=== PATIENT | male | born 1970 | race Native Hawaiian/Other Pacific Islander ===

== ENCOUNTER 2016-12-08 06:10 | Inpatient (IN) | payer MEDICARE ==
[~2016-12-08] VITALS: Ht 175.3 cm; Wt 111.4 kg
[2016-12-08] VITALS (13 sets, daily range): BP systolic 126–173; BP diastolic 65–89; PULSE 62–84; RESP 18–35; O2SAT 93–100
--- NOTE | 2016-12-08 06:15 | ED.REPORT ---
HPI-Chest Pain 40 and Over Date of Service December 08, 2016 ED Provider: Delilah Castro MD The patient is a 46 year old male w/ a hx of kidney failure on dialysis, DM and HTN who presents to the ED via EMS due to sudden onset 8/10 mid-chest pain beginning this morning at 415. C/o associated SOB. 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 Medics found him hypertensive and he was given nitro and morphine en route. The pt lives in [facility] and was referred to [facility] for more extensive cardiac care that could not be provided in [facility]. [place]. The pt lives in [facility] and he had an episode of chest pain about a month ago, at which time he was hospitalized. Further evaluation found 2 known lesions. His last dialysis was . The pt's SATS are 77 on room air. He reports his pain at the ED is zero. Nursing Notes Stated Complaint: CHEST PAIN Nursing Notes Reviewed: Yes Allergies: Coded Allergies: No Known Allergies (Unverified , 12/08/16) Scheduled Aspirin (Aspirin) 81 Mg Tablet 81 MG PO DAILY Calcium Acetate (Calcium Acetate) 667 Mg Capsule 2,001 MG PO TID Carvedilol (Coreg) 6.25 Mg Tablet 6.25 MG PO BID Clonidine (Clonidine) 0.2 Mg Tablet 0.2 MG PO HS Clopidogrel Bisulfate (Plavix) 75 Mg Tablet 75 MG PO DAILY Insulin Glargine (Lantus U100 Insulin Vial) 100 Unit/Ml Vial 40 UNIT SUBQ BID Losartan Potassium (Losartan Potassium) 50 Mg Tablet 50 MG PO DAILY General Time Seen by MD: 06:13 Chief Complaint Chest pain Hx Obtained From: Patient, EMS Arrived By: Ambulance Sudden in Onset?: Yes Onset Occurred: 1 - 4 hours ago Symptom Duration: Since onset Location: : Chest left Quality: Painful Radiation: : Does not radiate Severity: Current: Pain level 0 out of 10 Severity: Maximum: Pain level 8 out of 10 Associated with: Reports: Shortness of Breath Recent Healthcare: Recent doctor visit, Recent hospitalization Similar Sx Previous: Yes Past Medical History Past Medical History kidney failure on dialysis Reports: Diabetes mellitus, Hypertension Family History Pt just arrived from [facility] on 12/05/16 where he could not receive adequate medical care. He was referred to a energy auditor in [place]. Smoking History Unknown if Ever Smoker Social History Other Social History: Good social support, From out of town Ambulatory Status Independent Review of Systems Respiratory: Reports: Shortness of breath Cardiovascular: Reports: Chest pain Complete sys rev & neg: except as marked. Physical Exam Initial Vital Signs Vital Signs (First) Date Time Temp Pulse Resp B/P Pulse Ox O2 Delivery O2 Flow Rate FiO2 12/08/16 06:18 36.8 84 35 172/89 99 Non-Rebreather 10 Initial VS: Reviewed Head / Eyes: Atraumatic, Normocephalic, PERRL ENT: Mucous membranes moist Back: No CVA tenderness Extremities: Vascular intact, Neuro intact, No swelling, No tenderness Skin: Warm, Dry General/Constitutional: Awake, Alert, Cooperative Appearance / Presentation: Positive: Pale hypoxic well profused oriented Respiratory / Chest: Atraumatic, Breath sounds NL, Breath sounds = bilat, No rales, No rhonchi, No wheezing Cardiovascular: Heart rate NL, Regular rhythm, Heart sounds NL Lower Ext Edema: Positive: Bilateral 2+ chronic venous stasis changes Abdomen: Atraumatic, Soft, Non-tender Interpretation & Diagnostics Lab Results Interpretation Result Diagram: 12/08/16 0631 12/08/16 0631 Test 12/08/16 06:31 White Blood Count 11.6th/mm3 (3.8-10.1) Red Blood Count 3.40mil/mm3 (4.40-5.80) Hemoglobin 10.8g/dL (13.8-17.2) Hematocrit 32.9% (41.0-50.0) Mean Corpuscular Volume 96.8fL (81-100) Mean Corpuscular Hemoglobin 31.8pg (27.0-35.0) Mean Corpuscular Hemoglobin Concent 32.8% (32.0-37.0) Red Cell Distribution Width 12.8% (12.3-15.4) Platelet Count 268bil/L (150-400) Neutrophils (%) (Auto) 73.0% (40-74) Lymphocytes (%) (Auto) 15.2% (14-46) Monocytes (%) (Auto) 5.9% (4-12) Eosinophils (%) (Auto) 5.3% (0-5) Basophils (%) (Auto) 0.3% (0-3) Sodium Level 134mEq/L (134-144) Potassium Level 6.4mEq/L (3.5-5.2) Chloride Level 91mEq/L (97-108) Carbon Dioxide Level 21mmol/L (18-29) Blood Urea Nitrogen 92mg/dL (6-24) Creatinine 12.37mg/dL (0.76-1.27) Estimat Glomerular Filtration Rate 5mL/min (>59) Glucose Level 262mg/dL (60-99) Calcium Level 9.1mg/dL (8.5-10.1) Magnesium Level 3.0mg/dL (1.6-2.6) Total Bilirubin 0.3mg/dL (0.0-1.2) Aspartate Amino Transf (AST/SGOT) 26U/L (0-50) Alanine Aminotransferase (ALT/SGPT) 19U/L (0-44) Alkaline Phosphatase 95U/L (25-150) Troponin T 0.250ug/L (0.0-0.011) Total Protein 8.2g/dL (6.4-8.4) Albumin 3.9g/dL (3.4-5.0) Hold Arizmendi Top Tube Received (Received) ECG Interpretation ECG Interpretation: peaked t waves concern for potassium levels Acute ST depression in II, IV, AVF Time: 06:20 Interpreted by: ED physician Normal ECG Interpretation: Normal sinus rhythm (rate 82) ECG Interpretation: pain free improved ST depression and T-wave changes inferiorly Time: 07:18 Interpreted by: ED physician Normal ECG Interpretation: Normal sinus rhythm (rate 69) X-Ray Chest Interpretation Chest Xray Interpretation: IMPRESSION: fluid overload may be developing right lower lobe pneumonia View: Portable Interpretation / Wet Read by: Wet read ED physician Re-Eval/Medical Decision Med Decision/Clinical Course 46-year-old gentleman moved from [facility] to [facility] area on Thursday. Complex medical history with renal failure and dialysis, last dialysis was on . Diabetes hypertension hyperlipidemia." [facility] [place] he had a non-STEMI. Underwent cardiac catheterization with lesions noted in the right coronary artery and circumflex artery but they were unable to do any type of interventions. He has been on Plavix Coreg statin and aspirin since that time. Today with severe left-sided chest pain with hypoxic with saturations in the 70s. EKG does not suggest STEMI however he does have ST depression in the inferior lateral position consistent with known coronary lesions. Was pain-free after 3 nitroglycerin however within half an hour of the nitroglycerin being given his pain returned. Nitro drip was started and again pain-free. He started on heparin. He has remained hemodynamically stable throughout his emergency room visit and after the nitro drip has been started has remained pain-free. He does have hyperkalemia however he does not have a widening QRS. He was given 5 units of insulin with a blood sugar in the 200 range. Will need to be rechecked in an hour. Given his complete renal failure, expected that 5 units of insulin will not be cleared rapidly. He was significantly hypoxic responds nicely to oxygen. Chest x-ray suggests significant fluid or fluid overload. There is no clinical suggestion that there is any infectious etiology and antibiotics are not initiated in the emergency department Nephrology has been consulted, cardiology has been consulted. Patient will be admitted to the ICU with nitroglycerin and heparin drips in place. Anticipate need for dialysis. Anticipate need for coronary artery intervention at some point. Hospital records and studies from [facility] including the recent cardiac catheterization are reviewed. Anticipated course of hospital stay is reviewed with patient and family. All questions are answered. He is stable at time of transfer to the ICU. Time of Eval: 08:00 Patient Status: Moderate relief, Pain improved Re-Evaluation/Progress Note: Pt rechecked. Pt is pain free and denies SOB. He is on 5L and SATS at 97%. Discussed x-ray and plan for admission with pt and family. Pt understands and agrees with plan. All questions addressed. Consultation #1: Referral / Consult Name: Ben Sena MD Call Returned at: 06:26 Can Dryer: Agrees with eval, Agrees with plan Note: Case discussed. Consultation #2: Referral / Consult Name: Donita Wolfe MD Consulted With: Hospitalist Call Returned at: 07:35 Can Dryer: Agrees with plan Note: Case discussed. Dr. Miller agrees with evaluation. Consultation #3: Referral / Consult Name: Ben Sena MD Consulted With: Hospitalist Call Returned at: 08:20 Note: Case discussed. Dr. Sena visited pt in the ED. Consultation #4: Referral / Consult Name: Jeff Almonte MD Consulted With: Hospitalist Call Returned at: 08:30 Can Dryer: Agrees with eval, Agrees with plan Note: Case discussed. Counseled Regarding: Diagnosis, Lab results, Need for admission Discharge & Departure Primary Impression: Non-STEMI (non-ST elevated myocardial infarction) Additional Impressions: Hypoxia Chronic renal failure Chronic kidney disease stage: unspecified stage Qualified Code: N18.9 - Chronic kidney disease, unspecified Hyperkalemia Disposition: ADMITTED TO HOSPITAL Discharge Condition All VS Reviewed: Yes Condition: Stable Referrals: [facility] Crit Care Except Billable Proc Time Spent: 30-74 minutes Services Performed: Patient management by me, Time spent at bedside, Reviewing test results, Reviewing imaging, Discussing patient care, Documentation in record, Time with fam/surrogate Scribe Attestation Portion of this note were transcribed by Holly Love. I, Dr. Annmarie Castro, personally performed the history, physical exam, and medical decision-making: I reviewed and confirmed the accuracy for the information in the transcribed note. Signed by: evi Malik, 12/08/16 0800 copies to: [facility] Delilah Castro MD December 08, 2016 06:15 Holly Love December 08, 2016 06:24
[2016-12-08] MEDS ORDERED: Nitroglycerin 50 mg/250 mL D5W 50,000 MCG in IV Premix 1 EACH IV ONE (06:25)
[2016-12-08 06:49] LABS: BASOPHILS % (AUTO) 0.3 % (0-3); EOSINOPHILS % (AUTO) 5.3 % (0-5); MONOCYTES % (AUTO) 5.9 % (4-12); Mean Corpuscular Hemoglobin 31.8 pg (27.0-35.0); Mean Corpuscular Volume 96.8 fL (81-100); Platelet Count 268 bil/L (150-400)
[2016-12-08] MEDS ORDERED: Heparin 25K Unit/500mL 0.45 NS 25,000 UNIT in IV Premix 1 EACH IV ONE (07:30)
[2016-12-08] MEDS ORDERED: Heparin 5,000 Unit/mL Inj IVPUSH ONE (07:30)
[2016-12-08 07:44] LABS: TROPONIN T 0.25 ug/L (0.0-0.011)
[2016-12-08] MEDS ORDERED: Insulin Human REGular-Omnicell 100 Unit/mL IV ONE (07:50)
--- NOTE | 2016-12-08 08:10 | DRSVH ---
PROCEDURE: X-RAY CHEST ONE VIEW, PORTABLE ([id number]) INDICATIONS: chest pain TECHNIQUE: One view of the chest was acquired. COMPARISON: None. FINDINGS: Surgical changes and devices: None. Lungs and pleura: No pleural effusions or pneumothorax. Lungs are abnormal with reduced inspiratory volume and patchy bilateral pneumonia pattern best seen over each lung base. Mediastinum: Mediastinal contours appear normal. Heart size is normal. Bones and chest wall: No suspicious bony lesions. Overlying soft tissues appear unremarkable. IMPRESSION: Reduced inspiration and patchy bilateral pneumonia. Atypical pneumonia/viral pneumonia c an produce such an appearance. The heart is not enlarged. Dictated by: Jan Trinidad M.D. on 12/08/2016 at 8:07 Approved by: Jan Trinidad M.D. on 12/08/2016 at 8:08
[2016-12-08] MEDS ORDERED: CLOP75TA3 PO (08:20)
[2016-12-08] MEDS ORDERED: LOSA50TA37 PO (08:20)
[2016-12-08] MEDS ORDERED: INSU100V7 SUBQ (08:20)
[2016-12-08] MEDS ORDERED: CALC667C9 PO (08:20)
[2016-12-08] MEDS ORDERED: ASPI-973 PO (08:20)
[2016-12-08] MEDS ORDERED: CLON0.2T PO (08:20)
[2016-12-08] MEDS ORDERED: Polyethylene Glycol (PEG) 17 Gm Powder PO PRN (08:30)
[2016-12-08] MEDS ORDERED: CARV6.25 PO (09:31)
--- NOTE | 2016-12-08 10:39 | PCM.HPMED ---
Subjective Date of Service December 08, 2016 Primary Provider: Admitting Physician: Jeff Almonte MD Primary Care Physician: Wyatt Attending Physician: Jeff Almonte MD Chief Complaint: Chest pain, SOB History of Present Illness: History of present illness and past histories obtained from old charts, ED physician, family member and the patient(patient does not remember all details of current illness, PMH history, admissions, medications, procedures or test patient underwent in the past that might be relevant to current case). Matthew Finn is a 46-year-old male with a past medical history of hypertension, end-stage renal disease, recently diagnosed multivessel CAD(cardiac cath in October 2016, when he was advised to have nonemergent CABG). Patient lives in [facility], CABG is not available there, patient came to [facility] with intention to follow up with net trainer and academic specialist and have CABG done here. Patient has dialysis on Thursday. He missed his dialysis on Thursday. Today in the morning patient woke up with the chest pain 7 out of 10, sharp, radiating to his left arm, with no exacerbating factors, nitroglycerin helped the pain. His brother called EMS and patient was brought to our hospital for further evaluation and management. Emergency Department patient was hypertensive with blood pressure 167/82 heart rate 72 and respiration 19. His CBC showed mild leukocytosis 11.6, hemoglobin 10.8. His potassium was 6.4, magnesium 3, sodium 134, creatinine 12.37 BUN 92. I personally reviewed his chest x-ray which showed bilateral infiltrates. This could be secondary to volume overload as patient missed dialysis or it could be secondary to pneumonia. Patient does have mild leukocytosis though it could be reactive. He does not have fevers. Procalcitonin in end-stage renal disease patients is always elevated, so it would not really use it some additional test to rule out bacterial infection. So far patient is stable, so we have some time to repeat his chest x-ray and see if his infiltrates improved after dialysis. We will also monitor his CBC to see if his leukocytosis is worsening and his vital signs for fever. If his white blood cell count keeps going up or he develops fever the patient should be started on antibiotics. Patient was diagnosed with unstable angina, started on nitro drip, heparin drip , aspirin, metoprolol, Lipitor. [facility] Dr. Sena was consulted and advised that the patient should proceed with the non-emergent CABG, no cardiac catheterization is needed. [facility] was also consulted for hemodialysis. Review of Systems: REVIEW OF SYSTEMS: GENERAL: + malaise, no fevers., SEE HPI HEENT: Negative for frequent or significant headaches, No changes in hearing or vision, no nose bleeds or other nasal problems NECK: Negative for lumps, goiter, pain and significant neck swelling All other reviewed and negative other than HPI. Allergies Coded Allergies: No Known Allergies (Unverified , 12/08/16) PMH HTN, ESRD, CAD Surgical History HD AVF placement Family History HTN Social History Hx Alcohol Use: No Hx Substance Use: No Hx Tobacco Use: No Smoking Status: Unknown if Ever Smoker Living Arrangement: with Family Exam Vital Signs Vital Sign - Last Date Time Temp Pulse Resp B/P Pulse Ox O2 Delivery O2 Flow Rate FiO2 12/08/16 10:12 68 25 143/68 99 Simple Mask 7 12/08/16 06:18 36.8 Exam PHYSICAL EXAM: GENERAL: Alert, moderate distress, cooperative HEAD: atraumatic, normocephalic, no bruises. EYES: DELGADO, EOMI, anicteric, able to fully open and close eyelids SKIN: Skin color normal, turgor normal. No visible rashes or lesions. EAR, NOSE, MOUTH, THROAT: Lips, oral mucosa, tongue gums, oropharynx are moist , pink, no lesions. Ears normal appearance, no lesions. NECK: no jugulovenous distention, no carotid bruits, carotid pulse normal contour, No carotid bruit, supple, no enlarged lymph nodes appreciated; ROM normal. RESPIRATORY: Crackles bilaterally. Good diaphragmatic excursion. CARDIAC: normal S1 and S2; no rubs, murmurs, or gallops; regular rate and rhythm ABDOMEN: Abdomen soft, non-tender. BS normal. No masses or organomegaly. MUSCULOSKELETAL: ROM full, muscles are not tender EXTREMITIES: no pitting edema in LE, no deformities, clubbing or skin discoloration. NEURO: Alert, oriented X 3, Sensation grossly intact., Cranial nerves II-XII intact, Grossly normal motor function. PULSES: 2+ radial, 2+ carotid Lab and Diagnostics Result Diagram: 12/08/1663012/08/16630 Assessment & Plan Chest pain, ?Unstable angina. CAD, HLP - stable - I discussed with the patient risks of heparin drip - severe bleeding, patient accepted the risk. - cardiology following, plan to transfer to [facility] for CABG - c/w current meds ESRD, on HD TTS, Hyperkalemia - stable - net trainer following Plan - monitor renal function daily, monitor I/O daily, dose meds accordingly, c /w HD HTN - stable - c/w current meds Anemia of chronic disease - stable - monitor Hyponatremia - mild - monitor DM II - stable Plan - ISS, HGP, Accucheck AC HS, DM diet. DVT PROPHYLAXIS: Heparin Code status:Patient would like to be full code Disposition: discharge in 1-3 days after patient improves. Plan of care discussed with ED physician; Labs, radiology tests, Tele and ECG reviewed. Plan of care, medication side effects, home medication, diagnostic procedures and available alternatives were discussed and reviewed with patient/family. All questions answered. Patient/family verbalized understanding, approved and agreed to plan of care. Given patient's current condition, I certify, in my opinion inpatient services greater than two midnights are medically necessary for this patient. Please see H&P and MD progress notes for additional information about patient's course of treatment. Resuscitation Status: CPR: Attempt Resuscitation Time spent 60 min Jeff Almonte MD December 08, 2016 10:39
[2016-12-08] MEDS ORDERED: Dextrose 10% 250 ML IV PRN (11:05)
[2016-12-08] MEDS: Insulin Human REGular 300 Unit/3 mL Inj SUBQ SCH ×2 (12:43→17:00)
--- NOTE | 2016-12-08 13:22 | CONS ---
[address] [address] CONSULTATION REPORT PATIENT: ALLEGRA MCBRIDE : 1970 MR#: [id number] ADMIT: 12/08/2016 JOB ID: [id number] DATE OF SERVICE: 12/08/2016 REASON FOR CARDIOLOGY CONSULT: My intervention partner, Dr. Sena, asked me to see this patient, as he was informed by the ER to see this patient for his underlying coronary artery disease and chest pain. CHIEF COMPLAINT: Chest pain. PRESENT HISTORY: This 46-year-old, pleasant male from [facility], who has history of end-stage renal disease, on hemodialysis since 2014 three times a week (Thursday, , Thursday), insulin-requiring diabetes mellitus, essential hypertension, hyperlipidemia, was admitted last month at [facility] where he ruled in for [id number] myocardial infarction. He underwent left heart catheterization on November 13, 2016. According to the report, the patient has heavily calcified proximal LAD and about 80% disease at the junction of proximal to mid segment. Circumflex was heavily calcified and occluded proximally with [id number] collaterals filling the obtuse marginal branches. Right coronary artery was heavily calcified and occluded proximally with [id number] collaterals filling the distal RCA. On echocardiogram, LV ejection fraction reported to be 35% to 40%. The patient was advised to have bypass surgery. [facility] does not have bypass surgery facility over there. Hence, he was advised to come to [facility]. He was flown this Thursday and came back to [place] where his family is. He has appointment to see inspector hairspring truing in [facility] around December 17. However, this morning, he woke up with chest pain which was pressure type. On a scale of 1-10, it was eight in intensity. It was left-sided. He had heavy feeling in the left arm with some sweating without any significant nausea, vomiting. His brother called 911. His blood pressure was high. He was given aspirin, nitroglycerin, as well as morphine. He was brought to our hospital. His chest pain subsided. He was started on IV nitroglycerin as well. He has dynamic ST depression in lateral leads. ED physician talked to our winemaker, Dr. Sena, and then Dr. Sena asked me to see this patient as he was tied up in the carpenter/labor. At present, he is in ICU. He is chest pain free. He is sitting on his chair. Denies any history of fever, cough, expectoration or stroke-like symptoms. He has chronic shortness of breath on mild to moderate exertion. Denies any resting claudication pain. No history of rheumatic heart disease or congenital heart disease. PAST MEDICAL HISTORY: Triple vessel coronary artery disease with ischemic cardiomyopathy, recent non-STEMI, details as stated above, with underlying insulin-requiring diabetes mellitus, hypertension, hyperlipidemia, obstructive sleep apnea, on CPAP machine. PAST SURGICAL HISTORY: As stated above. ALLERGIES: Denies any allergies. MEDICATION AT HOME: He was takin. 81 mg aspirin daily. 2. Plavix 75 mg daily. 3. Clonidine 0.2 mg tablet q.h.s. 4. Carvedilol 6.25 mg b.i.d. 5. Losartan 50 mg daily. 6. Insulin. 7. Calcium carbonate. PAST SURGICAL HISTORY: As stated above. FAMILY HISTORY: Positive for AFib, diabetes mellitus. SMOKING HISTORY: He is an ex-smoker. He smoked for about 20 years, one pack per day, and about a month ago, he stopped smoking. Denies any current alcohol abuse. REVIEW OF SYSTEMS: Ten-point review of systems was obtained and they are negative except as stated above. PHYSICAL EXAMINATION: Blood pressure 143/68, heart rate 68, respiratory rate 25, oxygen saturation on 7 L 99%. HEENT: No significant jaundice. Neck: Difficult to comment upon JVD. Neck is short, obese. There is decreased air entry at the bases. CVS: Clinically S1 appears normal. P2 appears prominent. No S3, no S4. I do not appreciate any significant murmur or rub at present. Abdomen: Obese, no obvious pulsatile mass. I examined the patient in sitting position. Vascular: Decreased bilateral posterior tibial and dorsalis pedis. Could not examine the femoral arteries. He has a fistula in the left arm. GEOPHYSICAL PARTY CHIEF: Alert, oriented to time, place, person. Able to move all four extremities. Vascular: No critical limb ischemia at present. Other details as stated above. LABORATORIES: WBC 11.6, hemoglobin 10.8, MCV 96.8, platelets 268. Sodium 134, potassium 6.4, BUN 92, creatinine 12.37. Magnesium 3.0; Normal bilirubin, AST, ALT. Troponin T 0.250. Albumin 3.9. EKG at 6:20 a.m. today revealed sinus rhythm. The patient has peaked T-wave in lead V1 to V2 with J-point elevation which is old and about 0.5-[address] depression in lead V5 to V6, L1, aVL, and L2. Repeat EKG at about 7:18 a.m. revealed some improvement in those ST depressions. QTc 460 msec. X-ray chest today revealed reduced inspiratory volume and patchy bilateral infiltrates. Heart size reported to be normal. ASSESSMENT AND PLAN: Episode of chest pain with known history of triple-vessel disease including 80% proximal to mid left anterior descending and occluded circumflex and right coronary artery with [id number]-mr-[id number] and [id number]-ej-[id number] collaterals filling the distal right coronary artery and obtuse marginal branches, left ventricular ejection fraction 35% to 40% with recent [id number] myocardial infarction, end-stage renal disease on hemodialysis, hyperkalemia with potassium of 6.4, hypermagnesemia, dynamic ST changes as stated above, essential hypertension, hyperlipidemia, obstructive sleep apnea, ex-tobacco abuse, clinical suspicion for peripheral arterial disease. The patient was transferred from [facility] to have bypass surgery at [facility]. At present, he is chest pain free. His troponin abnormal. There is a possibility of another non-STEMI, or this could be due to underlying end-stage renal disease, hemodialysis resulted in abnormal troponin. However, in view of known coronary artery disease, I will keep that possibility of non-STEMI. I spoke to CT surgery department at [facility]. Spoke to the nurse of Dr. Aguiar and Dr. Rodgers. She spoke to Dr. Aguiar, who is doing surgery, and they accepted the patient. Plan is that after dialysis, as his potassium is very high, he will be transferred to [facility] for bypass surgery. Meanwhile, will continue heparin, nitroglycerin, tolerable dose of beta froilan, statin, and aspirin. Will hold Plavix. Discussed the plan with the patient and his family. They agreed and concur. Thanks for the cardiology consult. Total time spent, including calling [facility], talking to the surgery department, having discussion with the family members is about 75 minutes.
[2016-12-08] MEDS ORDERED: CLON0.1T PO (14:47)
[2016-12-08] MEDS ORDERED: CARV3.122 PO (14:47)
[2016-12-08] MEDS ORDERED: MUPI22OI2 TOP (14:50)
--- NOTE | 2016-12-08 18:15 | NUR ---
Dialysis note: 4 hrs tx 4000 ml net UF EUGENIO fistula, accessed w/ no problems Pls see DTR for VS details Qb 400-450 No extra heparin given, already on heparin drip O2 @ 5L via oxymask, then changed to 5L NC, then decreased to 2L, w/ sat 100% Tolerated tx, slept at intervals, cont on Nitro drip, no complaints of c/p Fistula needle sites clotted w/in 10 min Stable condition at end of tx Report given to Paula SANTOYO
--- NOTE | 2016-12-08 18:22 | NUR ---
Admit/nitro gtt/transfer Pt arrived on floor from ED on nitro gtt at 5 and heparin gtt at 1000u. Pt denied any CP throughout shift and titrated nitro gtt to BP per cardiology. Pt able to get up one person assist to chair and at side of bed. Pt transferred to [place] at 1840. Called report to [phone], for room #624. Family at bedside.
--- NOTE | 2016-12-08 19:11 | CONS ---
[address] [address] CONSULTATION REPORT PATIENT: ALLEGRA MCBRIDE : 1970 MR#: [id number] ADMIT: 12/08/2016 JOB ID: [id number] DATE OF SERVICE: 12/08/2016 REQUESTING PHYSICIAN: Delilah Castro MD. REASON FOR CONSULTATION: Management of end-stage renal disease. CHIEF COMPLAINT: Chest pain. PRESENT ILLNESS: This is a very pleasant 46-year-old gentleman with significant past medical history of end-stage renal disease, type 2 diabetes, hypertension who presented to the hospital with a complaint of chest pain. The patient is accompanied by his family. The patient lives in [facility]. Apparently, the patient was diagnosed with a heart attack in October 2016. He underwent cardiac angiography and was told that he would need nonemergent CABG. Cardiac bypass is not available in [facility], hence, the patient came to the [facility] for a higher level of care. Some of his family members live in the [place] Patient just arrived in [facility] on Thursday. His last dialysis was on last . This morning, he reported experiencing with 7/10 chest pain. EMS was called. The patient received nitro and morphine en route. The pain subsided upon arrival. He stated that he has been on dialysis for at least two years. Prior to coming to the [facility], he had arranged outpatient dialysis at [facility]. His brother is also on dialysis for a number of years and also being listed as a kidney transplant candidate. The patient reports that diabetes runs in the family. During my visit, the patient has felt better. He has some shortness of breath and chest pain is almost gone. The initial blood work showed a troponin of 0.250, potassium of 6.4, sodium of 134, chloride of 91, bicarb of 21. Chest x-ray showed reduced inspiration and patchy bilateral pneumonia. Initial vitals showed the temperature of 36.8, pulse of 84, respiratory 35, O2 sat of 99% with non-rebreather at 10 L/minute oxygen flow. Initial blood pressure was 172/89. [employer] has been consulted. Heparin is about to be started. PAST MEDICAL HISTORY: 1. Type 2 diabetes complicated by diabetic nephropathy. 2. End-stage renal disease on hemodialysis every Thursday, , Thursday for at least two years. 3. Hypertension. 4. Tobacco abuse. He quit smoking about a month ago. 5. He denies history of stroke or peripheral vascular disease. 6. He was told that he had history of chronic bronchitis. SURGICAL HISTORY: Status post AV fistula creation. FAMILY HISTORY: Positive for diabetes, hypertension, a stroke and kidney disease. Two of his brothers are on dialysis. One of them have from a stroke. SOCIAL HISTORY: Patient just quit smoking a month ago. He denies current use of alcohol, tobacco, or illicit drugs. ALLERGIES: No known drug allergies. REVIEW OF SYSTEMS: Fourteen point review of system was performed. PHYSICAL EXAMINATION: Vitals: Temperature 37.4, pulse 68, respiratory rate 25, blood pressure 143/68, O2 sat 99% on a Venti mask at 7 L/minute oxygen flow. General appearance: Awake, alert, oriented x3 in no acute distress. HEENT: No pallor. No jaundice. No JVD. No lymphadenopathy. No thyroid enlargement. Heart: Regular rhythm. Normal S1, S2. No murmurs, rubs, or gallops. Lungs: Fine crackles at the bases. No wheezing. No rhonchi. Abdomen: Soft, obese, active bowel sounds. Nontender. Nondistended. No hepatosplenomegaly. Extremities: No edema, cyanosis or clubbing of fingers. LABORATORY: WBC 11.6, hemoglobin 10.8, sodium 134, potassium 6.4, chloride 91, bicarb 21, BUN 92, creatinine 12.37, glucose 262, magnesium 3.0, troponin 0.250. ASSESSMENT: 1. End-stage renal disease, on hemodialysis every Thursday, , Thursday. Patient missed dialysis on Thursday. 2. Acute coronary syndrome, suspected non-ST elevation myocardial infarction. 3. History of heart attack status post cardiac angiogram in October 2016 in [facility]. The patient reported that he had two artery blockades and would need nonemergent coronary artery bypass graft. 4. Hypertension with hypertensive nephrosclerosis. 5. Type 2 diabetes complicated by diabetic nephropathy. 6. Acute hypoxemia likely due to fluid overload. 7. Renal osteodystrophy. 8. Anemia of chronic kidney disease. 9. Hyperkalemia. PLANS: Per renal standpoint, we will arrange for dialysis today for 4 hours with a 2 potassium bath. We will try to remove the fluid 2-3 L as tolerated. The patient likely will be transferred to [place] for CABG after hemodialysis. Thank you for allowing me to participate in the care of your patient. MANUELA
== END 2016-12-08 18:55 | disposition short-term general hospital (02) | DRG 280 ==
LOC: SED 06:10 → EDBD 06:10 → CCU 09:05
PROVIDERS: ADMIT Internal Medicine; ATTEND Internal Medicine
PROC: 5A1D00Z (ICD-10-PCS; principal; 2016-12-08)
DX: I21.4 Non-ST elevation (NSTEMI) myocardial infarction (principal); N18.6 End stage renal disease; E87.1 Hypo-osmolality and hyponatremia; I13.11 Hypertensive heart and chronic kidney disease without heart failure, with stage 5 chronic kidney disease, or end stage renal disease; Z99.2 Dependence on renal dialysis; Z79.82 Long term (current) use of aspirin; Z79.4 Long term (current) use of insulin; E87.5 Hyperkalemia; I25.10 Atherosclerotic heart disease of native coronary artery without angina pectoris; Z87.891 Personal history of nicotine dependence; E11.21 Type 2 diabetes mellitus with diabetic nephropathy; E87.70 Fluid overload, unspecified; R09.02 Hypoxemia; D63.1 Anemia in chronic kidney disease